=== PATIENT | male | born 1970 | race Caucasian/White ===

== ENCOUNTER 2016-10-07 17:44 | Inpatient (IN) ==
--- NOTE | 2016-10-07 18:10 | EKG Report ---
Stationary ECG Study [facility] ER Test Date: 10/07/2016 6:00:16 PM Pat Name: NARCISA MILLS Department: Room: Gender: M Clinical Investigator: Katerine : 1970 Requested by: Roberto Rodríguez Order Number: [id number] Reading MD: LINDSAY VELA Intervals [place] Rate: 77 P: 53 [place]: 150 QRS: 48 QRSD: 96 T: 72 QT: 368 QTc: 400 Interpretive Statements SINUS RHYTHM WITH MARKED SINUS ARRHYTHMIA INCOMPLETE RIGHT BUNDLE BRANCH BLOCK MINIMAL ST DEPRESSION Electronically Signed On 10-10-16 08:34:57 FOOD CLERK by LINDSAY VELA [email or web address]
[2016-10-07] MEDS ORDERED: PANTOPRAZOLE 40 MG VIAL IV STA (20:08)
[2016-10-07] MEDS ORDERED: ALUM/MAG/SIMETH/LIDO VISC 1:1 30 ML BOTTLE PO STA (20:08)
[2016-10-07] MEDS ORDERED: ONDANSETRON 4 MG/2 ML VIAL IV STA (20:08)
[2016-10-07] MEDS ORDERED: NITROGLYCERIN 2% OINT 1 INCH/GM PACK TOP STA (20:08)
[2016-10-07] MEDS ORDERED: ASPIRIN 325 MG TABLET PO STA (20:08)
[2016-10-07] MEDS ORDERED: MORPHINE 2 MG/1 ML SYRINGE IV STA (20:08)
--- NOTE | 2016-10-07 20:09 | Emergency Department Note ---
Rosales Almanzar Gwan, am scribing for, and in the presence of, Roberto Escobar MD 20 :02. Luz Almanzar Charles R, MD, personally performed the services described in this documentation, ascribed by Kelly Caba in my presence, and it is both accurate and complete . Arrival - Arrival Chief Complaint: Chest Pain Stated Complaint: HURTING IN CHEST/BACK ED Nursing Triage Note: C/O chest pain radiating to back, diaphoresis, SOB X 2 days. Pt is followed by Dr. Thomas. Mode of Arrival: Ambulatory Limitations: No Limitations Source: Patient, Old Records Reviewed, RN Notes Reviewed - History of Present Illness HPI Narrative: Pt is a 46 y/o male, with a hx of CVA/asthma/COPD, who presents to the ED with a c/o chest pain with an onset 2 days ago. Patient also noted that his chest pain radiates to his back and that he has also had diaphoresis and SOB. He continued to say that his pain won't go away. Patient confirmed that he is scheduled to have a stress test done on 10/10/2016 and that he smoke cigarettes daily. He denies any other pain. Pt is followed by Dr. Thomas. Pt has a PMHx of HTN, anxiety disorder, depression, schizophrenia, seizures, CVA (2013), migraine, dyslipidemia and bronchitis. No other problems/complaints reported in ED. Onset (ago): day(s) Consistency: constant Allergies/Adverse Reactions: Allergies Allergy/AdvReac Type Severity Reaction Status Date / Time Penicillins Allergy Severe RASH Verified 10/07/16 17:52 trazodone Allergy Severe RASH Verified 10/07/16 17:52 Sulfa (Sulfonamide Allergy Unknown RASH Verified 10/07/16 17:52 Antibiotics) Home Medications: Home Medications Medication Instructions Recorded Confirmed Type Esomeprazole Magnesium [Nexium] 40 mg PO BID 12/09/14 10/07/16 History Albuterol Inhaler [Proventil 2 puff INH Q6H PRN 07/20/16 10/07/16 History Inhaler] HYDROcodone/ACETAMIN 10-325 [Saline 1 tablet PO BID 10/07/16 10/07/16 History 10-325] Review of System - Review of System 12 point system: reviewed and no additional remarkable complaints except as stated - Review of System Constitutional: Present: as per HPI, diaphoresis Respiratory: Present: as per HPI, other (shortness of breathe) Cardiovascular: Present: as per HPI, chest pain Musculoskeletal: Present: as per HPI, back pain (chest pain radiates to his back ) Medical,Surgical,& Family Hx - Medical History Cardio: History of: Hypertension Psychological: History of: Anxiety Disorders, Depression, Schizophrenia Neurology: History of: Cerebrovascular Accident (2014), Migraine, Seizures HEENT: History of: Ear Problem ([place]), Eye Problem (Poor vision) Endocrine: History of: Dyslipidemia Respiratory: History of: Asthma, Bronchitis, COPD Gastrointestinal: History of: GERD, Pancreatitis Musculoskeletal: History of: Back/Neck Problems, Degenerative Disk Disease, Osteoporosis, Musculoskeletal Problems (Arthritis) - Surgical History Abdominal Surgeries: Surgical HX of: Abdominal Surgery, Colonoscopy, EGD, Hernia Repair Reproductive Surgeries: Patient denies;: Genitourinary Surgery Orthopedic Surgeries: Surgical HX of;: Orthopedic Surgery (bilateral shoulder surgery and hands) - Family History Family History: Reports;: Family Cancer (Brother, Mother), Family Diabetes ( Sister), Family Heart Disease (Father), Family Hypertension (Father, mother), Family Psychiatric Problems (Son), Family Stroke (Aunt) Denies;: Family Anesthesia Reaction - Social History Smoking Status: Current every day smoker Frequency of Alcohol Use: None Type of Drug Use: None Exam Vital Signs: Vital Signs Temperature 98.2 F 10/07/16 17:53 Pulse Rate 90 10/07/16 17:53 Respiratory Rate 18 10/07/16 17:53 Blood Pressure 138/87 10/07/16 17:53 O2 Sat by Pulse Oximetry 98 10/07/16 17:53 - General General appearance: alert, in no apparent distress, other (ill appearing; strong smell of smoke/kerosene) - Head Head exam: Present: atraumatic, normocephalic - Eye Eye exam: Present: normal appearance, PERRL, EOMI - ENT ENT exam: Present: normal oropharynx, mucous membranes moist, TM's normal bilaterally, normal external ear exam - Neck Neck exam: Present: full ROM, trachea midline. Absent: tenderness, meningismus , lymphadenopathy, thyromegaly - Chest Chest inspection: Present: symmetric chest wall rise. Absent: tenderness - Respiratory Respiratory exam: Present: rhonchi (bilateral) - Cardiovascular Cardiovascular exam: Present: regular rate, normal rhythm, normal heart sounds. Absent: murmur, rubs, gallop - Back Exam Back exam: Present: full ROM. Absent: tenderness - Neurological Exam Neurological exam: Present: alert, oriented X3, CN II-XII intact. Absent: motor sensory deficit - Psychiatric Psychiatric exam: Present: normal affect, normal mood - Skin Skin exam: Present: warm, dry, intact, normal color Course - Consultations Consultation #1: Dr. Mae will admit for Dr. Metzger Time: 20:48 Results - Labs CBC & BMP: 10/07/16 20:08 10/07/16 19:01 Lab Results: I have reviewed the patients labs Labs: Laboratory Tests 10/07/16 10/07/16 19:01 20:08 WBC 9.2 RBC 4.66 Hgb 14.9 Hct 44.0 Plt Count 305 INR 0.9 PT Patient/Control Mix 9.7 Disposition Clinical Impression: Chest pain, Peptic ulcer disease, Tobacco use Case discussed with: patient, patient's family Disposition: Still a Patient Condition: Stable Time of Disposition: 20:49
[2016-10-07 20:14] LABS: Basophils # 0.1 10*3/uL (0.0-0.2); Basophils % 0.7 % (0.0-0.8); Eosinophils # 0.1 10*3/uL (0.0-0.87); Eosinophils % 1.5 % (0.00-10.9); Hemoglobin 14.9 GM/DL (14.0-18.0); Immature Granulocytes % 0.3 %; Immature Granulocytes Absolute 0.03 #; Lymphocytes # 3.6 10*3/uL (1.4-4.0); Lymphocytes % 39.5 % (21.2-54.2); Mean Corpuscular HGB Conc 33.9 GM/DL (32-36); Mean Corpuscular Hemoglobin 32 PG (27-34); Mean Corpuscular Volume 94.4 FL (87-102); Monocytes # 0.5 10*3/uL (0.11-0.8); Monocytes % 5.7 % (1.7-12.7); Neutrophils # 4.8 10*3/uL (1.4-7.4); Neutrophils % 52.3 % (38.7-73.9); Platelet Count 305 T/CUMM (130-400); Red Blood Count 4.66 MC/CUMM (3.8-5.5); Red Cell Distribution Width 13.2 % (9.3-17.3); White Blood Count 9.2 T/CUMM (4-12)
[2016-10-07 20:20] LABS: INR 0.9; PT Patient Result 9.7 SECS
[2016-10-07 20:26] LABS: Alanine Aminotransferase 17 U/L (16-61); Albumin 3.7 G/DL (3.4-5.0); Alkaline Phosphatase 86 U/L (45-117); Aspartate Amino Transferase 9 U/L (0-37); Bilirubin,Total < 0.39 MG/DL (0.2-1.0); Blood Urea Nitrogen 9 MG/DL (7-18); Calcium 8.8 MG/DL (8.5-10.1); Glucose 106 MG/DL (74-106); Magnesium 2.1 MG/DL (1.8-2.4); Osmolality,Calculated 288.6 MOS/KG (273-304); Potassium 3.9 MMOL/L (3.5-5.1); Sodium 146 MMOL/L (136-145); Total Protein 6.2 G/DL (6.4-8.3)
[2016-10-07 20:38] LABS: Apearance,Urine CLEAR (Clear); Bilirubin,Urine Negative (Negative); Blood, Urine Small mg/dL (Negative); Glucose,Urine (UA) Negative (Negative); Ketones,Urine Negative (Negative); Mucus,Urine Occasional /LPF (Occasional); Nitrite,Urine Negative (Negative); Protein,Urine Negative; RBC,Urine 1 /HPF (0-4); Urine Color Yellow (Yellow); Urine Specific Gravity 1.018 (1.001-1.035); Urine Urobilinogen < 2.0 EU/DL (0.2-1.0); WBC,Urine <1 /HPF (0-6)
[2016-10-07] MEDS ORDERED: PANTOPRAZOLE 40 MG VIAL IV ONE (20:38)
[2016-10-07] MEDS ORDERED: NITROGLYCERIN 2% OINT 1 INCH/GM PACK TOP ONE (20:38)
[2016-10-07] MEDS ORDERED: ASPIRIN 325 MG TABLET ONE (20:39)
[2016-10-07] MEDS ORDERED: ONDANSETRON 4 MG/2 ML VIAL ONE (20:39)
[2016-10-07] MEDS ORDERED: ALUM/MAG/SIMETH/LIDO VISC 1:1 30 ML BOTTLE PO ONE (20:39)
[2016-10-07] MEDS ORDERED: MORPHINE 2 MG/1 ML SYRINGE ONE (20:39)
[2016-10-07 20:42] LABS: Barbiturates Screen,Urine Negative (Negative); Benzodiazepines Screen,Urine Negative (Negative); Cannabinoid Screen,Urine Negative (Negative); Opiate Screen,Urine Positive (Negative); Phencyclidine Screen,Urine Negative (Negative)
[2016-10-07] MEDS ORDERED: ENOXAPARIN 100 MG/ML SYRINGE SUBCUT STA (20:52)
[2016-10-07] MEDS ORDERED: ENOXAPARIN 80 MG/0.8 ML SYRINGE SUBCUT ONE (21:01)
--- NOTE | 2016-10-07 21:22 | XRay Report ---
History: Chest pain Date: 10/07/2016 Study: Chest x-ray PA and lateral Comparison exam: Chest x-ray December 30, 2016 The cardiac silhouette is not enlarged. There is no mediastinal mass. The pulmonary vasculature is not engorged. There is no pleural effusion. There is a small amount of strandy atelectasis/infiltrate in the medial right lung base. Lungs are otherwise clear. There are some scattered emphysematous changes, more so in the lung apices. The osseous structures are unchanged. Impression: Nonspecific mild atelectasis/infiltrate medial right lung base. Emphysematous changes PROCEDURE INTERPRETED AT [facility] DEPARTMENT OF RADIOLOGY Final Report Signed by: Dr. Bree Henderson
[2016-10-07] MEDS ORDERED: ALBUTEROL 2.5 MG/3 ML NEB RESP TX PRN (22:03)
[2016-10-07] MEDS ORDERED: MORPHINE 2 MG/1 ML SYRINGE IV PRN (22:03)
[2016-10-07] MEDS ORDERED: ALBUTEROL/IPRATROPIUM 3 ML NEB RESP TX PRN (22:03)
[2016-10-07] MEDS ORDERED: DEXTROSE 50% 25 GM/50 ML VIAL IV PRN (22:03)
[2016-10-07] MEDS ORDERED: MAGNESIUM SULF RIDER 4 GM in PREMIX 1 EACH IV PRN (22:03)
[2016-10-07] MEDS ORDERED: POTASSIUM CHLORIDE 20 MEQ TABLET PO PRN (22:03)
[2016-10-07] MEDS ORDERED: MAGNESIUM SULF RIDER 2 GM in PREMIX 1 EACH IV PRN (22:03)
[2016-10-07] MEDS ORDERED: GLUCAGON 1 MG VIAL IM PRN (22:03)
[2016-10-07] MEDS ORDERED: ONDANSETRON 4 MG/2 ML VIAL IV PRN (22:03)
[2016-10-07] MEDS: INSULIN REGULAR 100 UNIT/ML SUBCUT SCH (23:17)
[2016-10-07] MEDS: SODIUM CHLORIDE 0.9% 1,000 ML IV SCH (23:18)
[2016-10-07] MEDS ORDERED: PANTOPRAZOLE 40 MG TABLET PO ONE (23:24)
[2016-10-07] MEDS: PANTOPRAZOLE 40 MG TABLET PO SCH (23:36)
[2016-10-08] MEDS ORDERED: NITROGLYCERIN 2% OINT 1 INCH/GM PACK TOP ONE ×2 (06:47→13:23)
[2016-10-08] MEDS: NITROGLYCERIN 2% OINT 1 INCH/GM PACK TOP SCH ×4 (07:00→21:12)
--- NOTE | 2016-10-08 07:24 | XRay Report ---
XR chest 1V portable Indication: Shortness of breath. Chest one view: Since yesterday, diffuse periosteal thickening is again shown with no focal infiltrates seen. Heart size and mediastinal contours remain normal. Impression: Continued airways disease. PROCEDURE INTERPRETED AT [facility] DEPARTMENT OF RADIOLOGY Final Report Signed by: Lion Fields M.D.
[2016-10-08] MEDS: INSULIN REGULAR 100 UNIT/ML SUBCUT SCH ×4 (07:48→21:12)
[2016-10-08 08:08] LABS: Basophils # 0.1 10*3/uL (0.0-0.2); Basophils % 0.8 % (0.0-0.8); Eosinophils # 0.1 10*3/uL (0.0-0.87); Eosinophils % 1.2 % (0.00-10.9); Hematocrit 43.5 VOL% (42.0-52.0); Hemoglobin 14.3 GM/DL (14.0-18.0); Immature Granulocytes % 0.3 %; Immature Granulocytes Absolute 0.02 #; Lymphocytes # 2.1 10*3/uL (1.4-4.0); Lymphocytes % 28.4 % (21.2-54.2); Mean Corpuscular HGB Conc 32.9 GM/DL (32-36); Mean Corpuscular Hemoglobin 31 PG (27-34); Mean Corpuscular Volume 95.6 FL (87-102); Monocytes # 0.4 10*3/uL (0.11-0.8); Monocytes % 5.5 % (1.7-12.7); Neutrophils # 4.7 10*3/uL (1.4-7.4); Neutrophils % 63.8 % (38.7-73.9); Platelet Count 293 T/CUMM (130-400); Red Blood Count 4.55 MC/CUMM (3.8-5.5); Red Cell Distribution Width 13.2 % (9.3-17.3); White Blood Count 7.4 T/CUMM (4-12)
[2016-10-08] MEDS ORDERED: ENOXAPARIN 80 MG/0.8 ML SYRINGE SUBCUT ONE (08:55)
[2016-10-08] MEDS ORDERED: ASPIRIN 325 MG TABLET ONE (08:55)
[2016-10-08] MEDS ORDERED: PANTOPRAZOLE 40 MG TABLET PO SCH (09:00)
[2016-10-08] MEDS: ASPIRIN EC 325 MG TABLET PO SCH (09:00)
[2016-10-08] MEDS ORDERED: ASPIRIN EC 325 MG TABLET PO ONE (09:00)
[2016-10-08] MEDS: ENOXAPARIN 80 MG/0.8 ML SYRINGE SUBCUT SCH ×2 (09:01→21:13)
[2016-10-08] MEDS ORDERED: PANTOPRAZOLE 40 MG TABLET PO ONE (09:54)
[2016-10-08] MEDS: PANTOPRAZOLE 40 MG TABLET PO SCH ×2 (09:55→21:13)
--- NOTE | 2016-10-08 14:34 | Cardiology History & Physical ---
Assessment and Plan - Time spent with patient Time spent with patient: Greater than 30 minutes (1) Hypertension Status: Chronic Assessment and plan: SEE PLAN OF CARE LISTED BELOW Current Visit: Yes (2) Dyslipidemia Status: Chronic Assessment and plan: SEE PLAN OF CARE LISTED BELOW Current Visit: Yes (3) CVA (cerebral vascular accident) Status: Chronic Assessment and plan: SEE PLAN OF CARE LISTED BELOW Current Visit: Yes (4) Seizure disorder Status: Chronic Assessment and plan: SEE PLAN OF CARE LISTED BELOW Current Visit: Yes (5) Back pain Status: Chronic Assessment and plan: SEE PLAN OF CARE LISTED BELOW Current Visit: Yes (6) Chronic pain Status: Chronic Assessment and plan: SEE PLAN OF CARE LISTED BELOW Current Visit: Yes (7) Body aches Status: Acute Assessment and plan: SEE PLAN OF CARE LISTED BELOW Current Visit: Yes (8) Abnormal chest xray Status: Acute Assessment and plan: SEE PLAN OF CARE LISTED BELOW Current Visit: Yes (9) Chest pain Status: Acute Assessment and plan: SEE PLAN OF CARE LISTED BELOW Current Visit: No (10) Dysphagia Status: Acute Assessment and plan: SEE PLAN OF CARE LISTED BELOW Current Visit: No (11) Tobacco use Status: Chronic Assessment and plan: SEE PLAN OF CARE LISTED BELOW Current Visit: Yes History of Present Illness Chief complaint: chest pain, back pain History of present illness: Patient is being seen in the emergency department at [facility]. Mr. Lynn is a 46 year old male routinely followed by Dr. Jen Thomas. Risk factors include: hypertension, dyslipidemia, tobaccoism, CVA, sedentary lifestyle. Former history of cocaine abuse and alcohol abuse but he has quit for many years. He also has a history of peptic ulcer disease, dysphagia, gastritis of a seizure disorder COPD and anxiety. He was last seen in cardiology clinic 10/02/2016 with complaints of atypical chest pain. He was scheduled for stress testing this at [facility] [place] [facility]. He has undergone cardiac catheterization in [address] Mae which revealed no obstructive coronary disease. October 2015 he underwent stress testing at [facility] which revealed no evidence of reversible ischemia. Most recent echocardiogram 11/21/2015 revealed ejection fraction of 60-65% without significant valvular abnormality. Patient reported to the emergency department last evening after experiencing total body pain for approximately 2 days. He reported he was having left chest pain and left shoulder pain worse in certain positions. Dr. Escobar contacted the on-call mental health orderly last night who accepted Mr. Lynn to our service. Patient describes chest pain as soreness, worse in certain positions and reproducible to palpation. Laying on the bed for so long test causes back pain and chest wall pain hurt worse. It is not associated with shortness of breath. He has chronic nausea as he has chronic abdominal pain in a long-standing history of GI issues. Occasionally, his belly aches to touch and aches at random. He tells me he is having some difficulty swallowing foods. He had a recent esophageal dilation by Dr. Reynolds. He feels like he needs this reviewed again. He has had a Calvin procedure that was later "undone for being too tight ". He denies recent vomiting of blood or passing blood in his stool. In general, he simply just does not feel well. He was concerned he could be having heart problems because not only is he hurting all over his body is hurting in the left chest. He continues to smoke cigarettes, currently smoking up to one and a half packs of cigarettes per day. Chest x-ray reveals infiltrate in the medial right lung and emphysematous changes. His cardiac biomarkers are negative and his EKG reveals no acute ischemia. ASSESSMENT/PLAN: 1. CHEST PAIN - suspect this is musculoskeletal in nature. Chest pain has been chronic for 2 days with normal troponin. He does have a Firm area on the left breast located at 10 o'clock. Will order mammogram. We'll also treat with Neurontin, tramadol and acetaminophen. He has no abnormal CT of chest with chest pain. We will order CT of his chest today PE protocol 2. TOTAL BODY ACHING - swab for the flu 3. DYSPHAGIA - consult Dr. Reynolds. Patient has a long-standing history of peptic ulcer disease and multiple GI issues. 4. ABNORMAL CHEST XRAY - suspicious for infiltrate related to possible pneumonia, worsening emphysema. CT chest PE protocol ordered 5. CHRONIC PAIN - resume home meds 6. HYPERTENSION - usually well controlled. Will adjust patient's accordingly during hospital stay 7. DYSLIPIDEMIA - at this time, we'll hold cholesterol-lowering agents which may be contributing to his body aches. Fasting lipid profile in the morning. Can consider steady a as needed. 8. SEIZURE DISORDER - no active seizure in several years. We will continue his home medications for seizure prevention. 9. EARLY SATIETY -Will consult gastroenterology 10. TOBACCOISM -reiterated the importance of tobacco cessation for greater than 5 minutes 11. SLEEP APNEA - noncompliant with sleep device due to ill fitting mask. Home Medications Medication Instructions Recorded Confirmed Type Esomeprazole Magnesium [Nexium] 40 mg PO BID 12/09/14 10/07/16 History Albuterol Inhaler [Proventil 2 puff INH Q6H PRN 07/20/16 10/07/16 History Inhaler] HYDROcodone/ACETAMIN 10-325 [[place] 1 tablet PO BID 10/07/16 10/07/16 History 10-325] Allergies Allergy/AdvReac Type Severity Reaction Status Date / Time Penicillins Allergy Severe RASH Verified 10/07/16 17:52 trazodone Allergy Severe RASH Verified 10/07/16 17:52 Sulfa (Sulfonamide Allergy Unknown RASH Verified 10/07/16 17:52 Antibiotics) Review of systems: REVIEW OF SYSTEMS: - Constitutional Constitutional: Present: Chronic fatigue. Anorexia and early satiety. Absent : syncope, night sweats - EENT Eyes: Acknowledges decreased vision both eyes after having stroke 2 years ago. Absent: Diplopia Ears: Present: decreased hearing. Denies ear pain, ear discharge - Cardiovascular Cardiovascular: Present: chest pain with exertion, chest pain at rest. Chest pain in certain positions. Chest pain to touch. Denies edema. Occasional palpitations, chest pain with deep breath, claudication. - Respiratory Respiratory: Present: [place], cough. Absent: wheezing, hemoptysis, change in phlegm color - Gastrointestinal Gastrointestinal: Present: constipation and diarrhea. Chronic abdominal pain throughout, particularly left upper quadrant of the abdomen. Frequent nausea Absent: hematemesis, hematochezia, melena, change in bowel habits - Genitourinary Genitourinary: Absent: difficulty urinating, dysuria, urinary hesitancy, flank pain - Musculoskeletal Musculoskeletal: Present: back pain, neck pain. Frequent muscle cramps and fatigue Absent: joint swelling, muscle weakness - Neurological Neurological: Present: normal gait without frequent falls. Frequent dizziness. Absent: hemiparesis - Psychiatric Psychiatric: Present: anxiety, depression, difficulty concentrating - Endocrine Endocrine: Present: fatigue. Absent: cold intolerance, heat intolerance, polyuria, polyphagia, polydipsia - Hematologic/Lymphatic Hematologic/Lymphatic: Present: easy bruising. Absent: easy bleeding -Integumentary Integumentary: Absent: lesions, rashes, skin breakdown Medical,Surgical,& Family Hx - Medical History Cardio: History of: Hypertension No history of: CHF, CAD, RI, Valvular Heart Disease Psychological: History of: Anxiety Disorders, Depression, Schizophrenia Neurology: History of: Cerebrovascular Accident (2014), Migraine, Seizures HEENT: History of: Ear Problem ([place]), Eye Problem (Poor vision) Endocrine: History of: Dyslipidemia Respiratory: History of: Asthma, Bronchitis, COPD Gastrointestinal: History of: GERD, Pancreatitis Musculoskeletal: History of: Back/Neck Problems, Degenerative Disk Disease, Osteoporosis, Musculoskeletal Problems (Arthritis) - Surgical History Abdominal Surgeries: Surgical HX of: Abdominal Surgery, Colonoscopy, EGD, Hernia Repair Reproductive Surgeries: Patient denies;: Genitourinary Surgery Orthopedic Surgeries: Surgical HX of;: Orthopedic Surgery (bilateral shoulder surgery and hands) - Family History Family History: Reports;: Family Cancer (Brother, Mother), Family Diabetes ( Sister), Family Heart Disease (Father), Family Hypertension (Father, mother), Family Psychiatric Problems (Son), Family Stroke (Aunt) Denies;: Family Anesthesia Reaction - Social History Smoking Status: Current every day smoker Have you smoked in the last 12 months: Yes Time spent discussing smoking cessation with patient: 3 to 10 minutes Frequency of Alcohol Use: None Type of Drug Use: None Marital Status: Lives With:: Spouse Functional capacity: independent ambulation Cardiology Physical Exam - Constitutional Vitals: Vital Signs Temp Pulse Resp BP Pulse Ox 98.2 F 69 16 109/83 96 10/07/16 17:53 10/08/16 08:45 10/08/16 08:45 10/08/16 08:45 10/08/16 08:45 Intake and Output 10/07/16 10/08/16 10/08/16 23:59 07:59 15:59 Output Total 125 / 125 Balance -125 / -125 Output: Urine 125 / 125 Other: Voiding Method Urinal Weight 74.843 kg Exam: General: Thin male. Appears well with no apparent distress. Pleasant and cooperative. Appears comfortable. HEENT: PERRL, normocephalic, atraumatic. Poor dentition noted. Mucous membranes moist. No jaundice noted. Conjunctiva moist and clear, sclerae anicteric Neck: No JVD/HJR, no thyromegaly or lymphadenopathy noted. No carotid bruit appreciated Cardiac: Regular rate and rhythm. No murmur rub or gallop. Lungs: Rhonchi noted throughout. And expiratory wheezes noted right anteriorly. Not Requiring oxygen Abdomen: Soft, bowel sounds normoactive. Tender in mid epigastric and left upper quadrant to moderate palpation. No abdominal bruit or thrill noted. No masses noted. Musculoskeletal: No fluid collection. Decreased range of motion is noted. Extremities: No clubbing, cyanosis noted. No edema noted. Upper extremity pulses 2+. Lower extremity pulses 1+. Capillary refill less than 3 seconds. Skin: No unusual lesions or rashes. No skin breakdown appreciated. Neuro: Awake, alert and oriented 3. Moves all extremities well without hemiparesis or paralysis. No essential tremor is appreciated. Result/EKG - Labs CBC & BMP: 10/08/16 06:49 10/07/16 19:01 Lab Results: I have reviewed the past 24 hour labs Labs: Laboratory Results - last 24 hr 10/07/16 10/07/16 10/07/16 19:01 19:01 19:01 WBC RBC Hgb Hct MCV MCH MCHC RDW Plt Count MPV Neut % (Auto) Lymph % (Auto) [place] % (Auto) Eos % (Auto) Baso % (Auto) Neut # (Auto) Lymph # (Auto) [place] # (Auto) Eos # (Auto) Baso # (Auto) Immature Gran % Nucleated RBC % Immature Gran # Nucleated RBCs # INR 0.9 PT Patient/Control Mix 9.7 Sodium 146 H Potassium 3.9 Chloride 111 H Carbon Dioxide 26 Anion Gap 12.9 BUN 9 Creatinine 0.90 GFR Calculation 99 BUN/Creatinine Ratio 10.00 Glucose 106 POC Glucose Calculated Osmolality 288.6 Calcium 8.8 Magnesium 2.1 Total Bilirubin < 0.39 AST 9 ALT 17 Alkaline Phosphatase 86 Troponin I B-Natriuretic Peptide Total Protein 6.2 L Albumin 3.7 Globulin 2.5 Albumin/Globulin Ratio 1.4 Lipase 224.0 Urine Color Yellow Urine Appearance Clear Urine pH 5.0 Ur Specific [place] 1.018 Urine Protein Negative Urine Glucose (UA) Negative Urine Ketones Negative Urine Blood Small Urine Nitrate Negative Urine Bilirubin Negative Urine Urobilinogen < 2.0 H Urine Leukocytes Negative Urine RBC 1 Urine WBC <1 Urine Mucus Occasional Ur Culture Indicated? Not indicated Urine Opiates Screen Ur Barbiturates Screen Ur Phencyclidine Scrn U Amphetamine/Methamph U Benzodiazepines Scrn U Cocaine Metab Screen U Cannabinoids Screen 10/07/16 10/07/16 10/07/16 19:01 19:01 19:01 WBC RBC Hgb Hct MCV MCH MCHC RDW Plt Count MPV Neut % (Auto) Lymph % (Auto) [place] % (Auto) Eos % (Auto) Baso % (Auto) Neut # (Auto) Lymph # (Auto) [place] # (Auto) Eos # (Auto) Baso # (Auto) Immature Gran % Nucleated RBC % Immature Gran # Nucleated RBCs # INR PT Patient/Control Mix Sodium Potassium Chloride Carbon Dioxide Anion Gap BUN Creatinine GFR Calculation BUN/Creatinine Ratio Glucose POC Glucose Calculated Osmolality Calcium Magnesium Total Bilirubin AST ALT Alkaline Phosphatase Troponin I < 0.015 B-Natriuretic Peptide 5 Total Protein Albumin Globulin Albumin/Globulin Ratio Lipase Urine Color Urine Appearance Urine pH Ur Specific [place] Urine Protein Urine Glucose (UA) Urine Ketones Urine Blood Urine Nitrate Urine Bilirubin Urine Urobilinogen Urine Leukocytes Urine RBC Urine WBC Urine Mucus Ur Culture Indicated? Urine Opiates Screen Positive H Ur Barbiturates Screen Negative Ur Phencyclidine Scrn Negative U Amphetamine/Methamph Negative U Benzodiazepines Scrn Negative U Cocaine Metab Screen Negative U Cannabinoids Screen Negative 10/07/16 10/07/16 10/08/16 20:08 22:47 01:28 WBC 9.2 RBC 4.66 Hgb 14.9 Hct 44.0 MCV 94.4 MCH 32 MCHC 33.9 RDW 13.2 Plt Count 305 MPV 10.0 Neut % (Auto) 52.3 Lymph % (Auto) 39.5 [place] % (Auto) 5.7 Eos % (Auto) 1.5 Baso % (Auto) 0.7 Neut # (Auto) 4.8 Lymph # (Auto) 3.6 [place] # (Auto) 0.5 Eos # (Auto) 0.1 Baso # (Auto) 0.1 Immature Gran % 0.3 Nucleated RBC % 0.0 Immature Gran # 0.03 Nucleated RBCs # 0.00 INR PT Patient/Control Mix Sodium Potassium Chloride Carbon Dioxide Anion Gap BUN Creatinine GFR Calculation BUN/Creatinine Ratio Glucose POC Glucose 70 L Calculated Osmolality Calcium Magnesium Total Bilirubin AST ALT Alkaline Phosphatase Troponin I < 0.015 B-Natriuretic Peptide Total Protein Albumin Globulin Albumin/Globulin Ratio Lipase Urine Color Urine Appearance Urine pH Ur Specific [place] Urine Protein Urine Glucose (UA) Urine Ketones Urine Blood Urine Nitrate Urine Bilirubin Urine Urobilinogen Urine Leukocytes Urine RBC Urine WBC Urine Mucus Ur Culture Indicated? Urine Opiates Screen Ur Barbiturates Screen Ur Phencyclidine Scrn U Amphetamine/Methamph U Benzodiazepines Scrn U Cocaine Metab Screen U Cannabinoids Screen 10/08/16 10/08/16 10/08/16 06:49 06:49 07:48 WBC 7.4 RBC 4.55 Hgb 14.3 Hct 43.5 MCV 95.6 MCH 31 MCHC 32.9 RDW 13.2 Plt Count 293 MPV 10.0 Neut % (Auto) 63.8 Lymph % (Auto) 28.4 [place] % (Auto) 5.5 Eos % (Auto) 1.2 Baso % (Auto) 0.8 Neut # (Auto) 4.7 Lymph # (Auto) 2.1 [place] # (Auto) 0.4 Eos # (Auto) 0.1 Baso # (Auto) 0.1 Immature Gran % 0.3 Nucleated RBC % 0.0 Immature Gran # 0.02 Nucleated RBCs # 0.00 INR PT Patient/Control Mix Sodium Potassium Chloride Carbon Dioxide Anion Gap BUN Creatinine GFR Calculation BUN/Creatinine Ratio Glucose POC Glucose 89 Calculated Osmolality Calcium Magnesium Total Bilirubin AST ALT Alkaline Phosphatase Troponin I B-Natriuretic Peptide 17 Total Protein Albumin Globulin Albumin/Globulin Ratio Lipase Urine Color Urine Appearance Urine pH Ur Specific [place] Urine Protein Urine Glucose (UA) Urine Ketones Urine Blood Urine Nitrate Urine Bilirubin Urine Urobilinogen Urine Leukocytes Urine RBC Urine WBC Urine Mucus Ur Culture Indicated? Urine Opiates Screen Ur Barbiturates Screen Ur Phencyclidine Scrn U Amphetamine/Methamph U Benzodiazepines Scrn U Cocaine Metab Screen U Cannabinoids Screen - Diagnostic Findings Procedure: Chest x-ray: report reviewed by me - EKG EKG results: interpreted by me, sinus rhythm
[2016-10-08] MEDS ORDERED: MAGNESIUM SULF RIDER 2 GM in PREMIX 1 EACH IV PRN (14:47)
[2016-10-08] MEDS ORDERED: MAGNESIUM SULF RIDER 4 GM in PREMIX 1 EACH IV PRN (14:47)
--- NOTE | 2016-10-08 15:11 | CT Report ---
Exam: CT chest PE study The total DLP is 237.7 mGy*cm. Date: 10/08/2016 2:44 PM Indication: Chest pain, abnormal chest x-ray, emphysema Comparison: Prior CT PE protocol September 27, 2015 Technical: Images were obtained from the thoracic inlet through the lung bases with 80 cc of Omnipaque 350 with axial and coronal imaging available for review. Findings: Mediastinum/vessels/lymph nodes: No filling defects are identified within the pulmonary vasculature to suggest pulmonary thromboembolism. The pulmonary arteries are not enlarged. Heart and great vessels appear unremarkable. There is no evidence of pericardial effusion. The aorta and great vessels appear widely patent. 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 Concurrently, the right-sided superior vena cava is diminutive in size with the opacified lumen measuring a minimum of 7 x 4 mm in cross-section in the axial plane. There is no adenopathy in the chest. Probably reactive, borderline but not technically enlarged right perihilar lymph nodes are noted. Lungs: Prominent emphysematous changes are noted within the upper lobes bilaterally. Otherwise, the lungs appear predominantly clear and central airways are patent. There is no pneumothorax or pleural effusion. There is no focal consolidation. No suspicious pulmonary nodules or masses are identified. Thyroid: Thyroid gland appears within normal limits. No acute abnormality is identified within the visualized upper abdomen. BONES: No acute or suspicious appearing osseous abnormalities are identified. Impression: 1. No evidence of pulmonary emboli. No other acute abnormality within the chest or upper abdomen to explain patient's symptoms. 2. Somewhat prominent emphysematous changes within both upper lobes which appear minimally progressed from prior. 3. Diminutive right-sided SVC and duplicated left SVC appears similar to prior. PROCEDURE INTERPRETED AT [facility] DEPARTMENT OF RADIOLOGY Final Report Signed by: Danyel Robertson
[2016-10-08] MEDS: ACETAMINOPHEN 325 MG TABLET PO SCH (21:13)
[2016-10-08] MEDS: traMADol 50 MG TABLET PO SCH (21:13)
[2016-10-08] MEDS: GABAPENTIN 100 MG CAPSULE PO SCH (21:14)
[2016-10-09] MEDS: SODIUM CHLORIDE 0.9% 1,000 ML IV SCH (01:58)
[2016-10-09] MEDS: NITROGLYCERIN 2% OINT 1 INCH/GM PACK TOP SCH ×2 (01:58→12:25)
--- NOTE | 2016-10-09 06:31 | History and Physical Update ---
Sedation H&P Update - History and Physical H&P was reviewed, the patient examined and there: are no changes in the patients condition since last H&P was completed. - Dictation Physical: refer to H&P completed by admitting physician - Physical Exam Mental Status: alert and oriented Heart: regular rate and rhythm Lung: clear to auscultation Abdomen: within normal limits Vitals: within normal limits - Sedation Plan for Sedation: minimal Patient Consent: Procedure disscussed with patient and patinet has consented., Risks and benefits were discussed with patient,including infection,, bleeding, injury to surrounding structures, seizure, temporary nerve, Patient understands and accepts potential risks/benefits and agrees to, proceed. ASA Class: II Airway Assessment: Class II: Soft palate, uvula, fauces visible
[2016-10-09] MEDS ORDERED: POTASSIUM CHLORIDE RIDER 10 MEQ in PREMIX 1 EACH IV PRN (07:00)
[2016-10-09] MEDS ORDERED: ASPIRIN CHEW 81 MG TABLET PO ONE (07:00)
[2016-10-09] MEDS ORDERED: MAGNESIUM SULF RIDER 2 GM in PREMIX 1 EACH IV PRN (07:00)
[2016-10-09] MEDS ORDERED: DIAZEPAM 5 MG TABLET PO ONE (07:00)
[2016-10-09] MEDS ORDERED: diphenhydrAMINE CAP 25 MG CAPSULE PO ONE (07:00)
[2016-10-09] MEDS: PANTOPRAZOLE 40 MG TABLET PO SCH ×2 (07:14→09:48)
[2016-10-09] MEDS ORDERED: LIDOCAINE 1% 20 ML VIAL ONE (07:43)
[2016-10-09] MEDS ORDERED: MEPERIDINE 25 MG/1 ML VIAL ONE (07:43)
[2016-10-09] MEDS ORDERED: MIDAZOLAM 2 MG/2 ML VIAL ONE (07:44)
[2016-10-09] MEDS ORDERED: SODIUM CHLORIDE 0.9% 1,000 ML IV SCH (08:53)
[2016-10-09] MEDS ORDERED: ENOXAPARIN 40 MG/0.4 ML SYRINGE SUBCUT SCH (09:00)
--- NOTE | 2016-10-09 09:10 | Cardiology Operative Report ---
Date of Procedure:: 10/09/16 Post-op diagnosis: same (Progressive chest pain,, thought to be unstable angina , requiring patient to go the emergency room, smoker) Procedure: Left heart cath Coronary angiography Left ventriculography Angiogram of the right femoral artery Angio-Seal of the right femoral artery-successful procedure: The patient was prepped and draped in usual manner. Entered the right femoral artery via the Seldinger technique. I used a sheath and then used a JL4 and engaged left coronary. Multiple views were taken. I then exchanged for a JR4. Multiple views of the right coronary were taken. I then exchanged for an angled pigtail. I crossed the valve. Left ventricular end-diastolic pressures measured. Left ventriculography was done. Left ventricle pullback was done. The catheters were then removed from the patient. Angiogram of the right femoral he was done. Angio-Seal was done. Patient was returned to the room in satisfactory condition. See medical laboratory technical officer report for the catheter sizes. Complications: none Hemodynamic data: LVEDP was 20 mmHg. Angiographic data: TAVAREZ left ventrigulography revealed normal global/regional LV systolic function. Overall ejection fraction is reviewed least 55-65%. The left main coronary was large and had minimal luminal irregularities. The left anterior descending artery was moderate in size. There is one major diagonal. there were minimal luminal irregularities. The left circumflex system was moderate to large. there was 1 major obtuse marginal and 1 posterior lateral branches. there are minimal luminal irregularities in the circumflex The right coronary artery was a large size, dominant vessel with the PDA. there are minimal luminal irregularities Right femoral artery injection revealed the puncture site of the right groin to be above the bifurcation, in a large vessel, and suitable for Angio-Seal. Findings: Impression: Minimal luminal irregularities-no significant obstructive disease Normal global/regional LV systolic function, LVEF greater than 55% [id number] elevation of LVEDP, 20 mmHg Angiogram of the right femoral artery Angio-Seal of right femoral artery-successful Plan/recommendations: The patient will have risk factors optimized. I have rediscussed with the patient about the need to stop smoking. He voices understanding and is considering it. The patient will be on antiplatelet medications to include aspirin indefinitely . He is better regarding treatment of his pain was treated for chest wall pain and continue proton pump inhibitor. Thus, we will continue these medications. He will be set up for an outpatient evaluation by his GI doctor, Dr. Victoriano Reynolds. The patient notes in the past he has had E scope and dilatation for esophageal stricture but he says it is not always help. Withfollow-up with Dr. Thomas will be scheduled. Addenda: I saw the patient post-cath. the groin puncture site and distal pulse are stable. vital signs are stable and the patient will be observed closely overnight. Anesthesia: local, minimal conscious sedation Surgeon / Physician: Melo Mae Agriculture Scientist: other (barney heck) Estimated blood loss: minimal Specimens: none sent Condition: stable Disposition: floor
[2016-10-09 09:23] LABS: Basophils # 0.1 10*3/uL (0.0-0.2); Basophils % 0.7 % (0.0-0.8); Eosinophils # 0.1 10*3/uL (0.0-0.87); Eosinophils % 1.2 % (0.00-10.9); Hematocrit 41.6 VOL% (42.0-52.0); Hemoglobin 13.7 GM/DL (14.0-18.0); Immature Granulocytes % 0.4 %; Immature Granulocytes Absolute 0.03 #; Lymphocytes # 1.7 10*3/uL (1.4-4.0); Lymphocytes % 24.3 % (21.2-54.2); Mean Corpuscular HGB Conc 32.9 GM/DL (32-36); Mean Corpuscular Hemoglobin 31 PG (27-34); Mean Corpuscular Volume 95.4 FL (87-102); Monocytes # 0.4 10*3/uL (0.11-0.8); Monocytes % 5.6 % (1.7-12.7); Neutrophils # 4.6 10*3/uL (1.4-7.4); Neutrophils % 67.8 % (38.7-73.9); Platelet Count 272 T/CUMM (130-400); Red Blood Count 4.36 MC/CUMM (3.8-5.5); White Blood Count 6.8 T/CUMM (4-12)
[2016-10-09] MEDS: INSULIN REGULAR 100 UNIT/ML SUBCUT SCH ×3 (09:47→17:36)
[2016-10-09 09:52] LABS: Calcium 8.3 MG/DL (8.5-10.1); Magnesium 2.3 MG/DL (1.8-2.4); Osmolality,Calculated 287.6 MOS/KG (273-304); Potassium 4.4 MMOL/L (3.5-5.1)
[2016-10-09] MEDS: ACETAMINOPHEN 325 MG TABLET PO SCH (10:03)
[2016-10-09] MEDS: traMADol 50 MG TABLET PO SCH (10:04)
[2016-10-09] MEDS: GABAPENTIN 100 MG CAPSULE PO SCH ×2 (10:05→15:36)
[2016-10-09] MEDS: ASPIRIN EC 325 MG TABLET PO SCH (10:22)
[2016-10-09] MEDS: ENOXAPARIN 80 MG/0.8 ML SYRINGE SUBCUT SCH (10:22)
--- NOTE | 2016-10-09 11:10 | Gastrointestinal Consult Note ---
Assessment and Plan (1) Chest pain Status: Acute Assessment and plan: 10/09-Several day history of chest pain, radiating to back and shoulders. Prior hx of esophageal stricture, dysphagia, GERD with hx of Calvin which was reversed in 2001. Negative heart cath today. Last EGD Jun with dilation. Plan and addendum to follow by Dr Reynolds. Current Visit: No History of Present Illness Chief complaint: Chest pain History of present illness: Mr. Lynn is a 46 year old male who presented to the hospital with onset of chest pain and SOB. Pt states that 3 days ago he had a sudden onset of chest pain that radiated to his back and shoulder with associated diaphoresis and SOB. He states the pain did not go away after onset and only wavered in intensity. Pt states that he has had pain like this before but never this intense. He has a prior history of HTN, anxiety, depression, schizophrenia, CVA (2013). He has a history of Calvin fundopilication done several years ago that he had reversed in 2001 due to ongoing dysphagia complaints. He states that the last several weeks he has had worsening dysphagia with solids and pills but not liquids. States that he does have some sensation of the food sticking in his throat and causes some chest discomfort. He reports he has lost about 5 pds recently due to unable to eat well. He denies any melena or hematochezia. He does have GERD symptoms and takes Nexium for this. He has had esophageal dilation done in the past with most recent being in February and Jun of this past year. He states it helped for a few weeks. He relates some of the chest pain to the same sensation as in past when he needed a dilation. He underwent cardiac catherization today with no acute findings noted. He is not on anticoagulants at present. Denies NSAID use. Home Medications Medication Instructions Recorded Confirmed Type Esomeprazole Magnesium [Nexium] 40 mg PO BID 12/09/14 10/07/16 History Albuterol Inhaler [Proventil 2 puff INH Q6H PRN 07/20/16 10/07/16 History Inhaler] HYDROcodone/ACETAMIN 10-325 [[place] 1 tablet PO BID 10/07/16 10/07/16 History 10-325] Allergies Allergy/AdvReac Type Severity Reaction Status Date / Time Penicillins Allergy Severe RASH Verified 10/07/16 17:52 trazodone Allergy Severe RASH Verified 10/07/16 17:52 Sulfa (Sulfonamide Allergy Unknown RASH Verified 10/07/16 17:52 Antibiotics) Medical,Surgical,& Family Hx - Medical History Cardio: History of: Hypertension No history of: CHF, CAD, AR, Valvular Heart Disease Psychological: History of: Anxiety Disorders, Depression, Schizophrenia Neurology: History of: Cerebrovascular Accident (2013), Migraine, Seizures HEENT: History of: Ear Problem ([place]), Eye Problem (Poor vision) Endocrine: History of: Dyslipidemia Respiratory: History of: Asthma, Bronchitis, COPD Gastrointestinal: History of: GERD, Pancreatitis Musculoskeletal: History of: Back/Neck Problems, Degenerative Disk Disease, Osteoporosis, Musculoskeletal Problems (Arthritis) - Surgical History Abdominal Surgeries: Surgical HX of: Abdominal Surgery, Colonoscopy, EGD, Hernia Repair Reproductive Surgeries: Patient denies;: Genitourinary Surgery Orthopedic Surgeries: Surgical HX of;: Orthopedic Surgery (bilateral shoulder surgery and hands) - Family History Family History: Reports;: Family Cancer (Brother, Mother), Family Diabetes ( Sister), Family Heart Disease (Father), Family Hypertension (Father, mother), Family Psychiatric Problems (Son), Family Stroke (Aunt) Denies;: Family Anesthesia Reaction - Social History Smoking Status: Current every day smoker Frequency of Alcohol Use: None Type of Drug Use: None 12 point system: reviewed and no additional remarkable complaints except as stated - Constitutional Constitutional: Present: as per HPI, weight loss - EENT Eyes: Present: as per HPI Ears: Present: as per HPI Nose, mouth and throat: Present: as per HPI, dysphagia - Cardiovascular Cardiovascular: Present: as per HPI, chest pain at rest - Respiratory Respiratory: Present: as per HPI - Gastrointestinal Gastrointestinal: Present: as per HPI, dysphagia, early satiety, heartburn - Genitourinary Genitourinary: Present: as per HPI - Musculoskeletal Musculoskeletal: Present: as per HPI - Neurological Neurological: Present: as per HPI - Psychiatric Psychiatric: Present: as per HPI - Endocrine Endocrine: Present: as per HPI - Hematologic/Lymphatic Hematologic/Lymphatic: Present: as per HPI Exam - Constitutional Vitals: Period Temp Pulse Resp BP Sys/Mitchell Pulse Ox Last 24 Hr 97.1 F-98.2 F 56-79 16-20 100-124/39-89 93-97 General appearance: normal weight, no acute distress - Head Head exam: Present: normal inspection, normocephalic - Eye Eye exam: Present: other (lids and conjunctiva unremarakble). Absent: scleral icterus - ENT ENT exam: Present: normal exam, normal oropharynx - Neck Neck exam: Present: normal inspection - Respiratory Respiratory exam: Present: clear to auscultation bilaterally. Absent: rales, rhonchi, wheezes - Cardiovascular Cardiovascular exam: Present: regular rate and rhythm. Absent: diastolic murmur , JVD, systolic murmur - GI/Abdominal GI/Abdominal exam: Present: normal bowel sounds, soft. Absent: ascites, distended, mass, organomegaly, tenderness - Extremities Exam Extremities exam: Present: normal inspection, full ROM - Back Exam Back exam: Present: normal inspection - Neurological Exam Neurological exam: Present: alert, oriented X3 - Psychiatric Psychiatric exam: Present: normal affect, normal mood - Skin Skin exam: Present: normal color, warm, dry Results - Labs CBC & BMP: 10/09/16 09:04 10/09/16 09:04 Lab Results: I have reviewed the past 24 hour labs Quality Measures - VTE Contraindication to Pharmacological VTE Prophylaxis: High Risk of Bleeding
[2016-10-09 14:49] VITALS: BP 102/62
--- NOTE | 2016-10-09 15:54 | Discharge Summary ---
Hospital Course - Hospital Course Hospital Course: Mr. Lynn is a 46 year old male routinely followed by Dr. Jen Thomas. Risk factors include: hypertension, dyslipidemia, tobaccoism, CVA, sedentary lifestyle. Former history of cocaine abuse and alcohol abuse but he has quit for many years. He also has a history of peptic ulcer disease, dysphagia, gastritis of a seizure disorder COPD and anxiety. He was last seen in cardiology clinic 10/02/2016 with complaints of atypical chest pain. He was scheduled for stress testing 10/10/2016 at [facility] [place] [facility]. He has undergone cardiac catheterization in [address] Mae which revealed no obstructive coronary disease. October 2015 he underwent stress testing at [facility] which revealed no evidence of reversible ischemia. Most recent echocardiogram 11/21/2015 revealed ejection fraction of 60-65% without significant valvular abnormality. Patient reported to the emergency department 10/08/2016 evening after experiencing total body pain for approximately 2 days. He reported he was having left chest pain and left shoulder pain worse in certain positions. Patient had numerous complaints and it was difficult to tease out exactly what the primary problem was. However, patient was concerned he was having a heart attack. He underwent elective cardiac catheterization performed by Dr. Mae 2016 with the following impression noted: No obstructive coronary artery disease. He tolerated the procedure well without complication was returned to our telemetry unit in stable condition. It is felt that his chest discomfort, in addition to being musculoskeletal in nature, may be from some of the numerous GI issues that he does have. He describes painful swallowing and difficulty swallowing. For this reason, he will be scheduled for an outpatient evaluation by Dr. Reynolds. Patient was treated with medications for his chest pain while he was here in the chest pain did improve overnight. Patient has been out ambulating post cath and when out smoking at one point. He tolerated the ambulation without problems from his right groin. Having felt he met maximal medical therapy, patient is being discharged home in stable condition. Patient will be given a follow-up appointment with Dr. Reynolds in the next one to 2 weeks. Patient is being given a follow-up appointment with Dr. Thomas in 4-6 weeks. Patient will be discharged home on the following new medications: Neurontin 100 mg orally 3 times a day for one week Tramadol 50 mg's orally twice a day 1 week Acetaminophen 325 mg orally twice a day 1 week - Time spent with patient Time with patient DS: Greater than 30 minutes Time spent discussing smoking cessation with patient: 3 to 10 minutes Diagnosis - Discharge Diagnosis (1) Hypertension Status: Chronic (2) Dyslipidemia Status: Chronic (3) CVA (cerebral vascular accident) Status: Chronic (4) Seizure disorder Status: Chronic (5) Back pain Status: Chronic (6) Chronic pain Status: Chronic (7) Body aches Status: Resolved (8) Abnormal chest xray Status: Chronic (9) Chest pain Status: Resolved (10) Dysphagia Status: Chronic (11) Tobacco use Status: Chronic Specialty Discharge - Follow Up or Referrals Follow up with: Wilmer Reynolds MD [Physician] - ([facility] , do not eat or drink anything after midnight the morning of procedure. ) Jen Thomas MD [Physician] - (4-6 weeks) Discharge Plan - Discharge Data Disposition: Disch To Home/Self Care Condition at Discharge: Stable Discharge Diet: advance to your usual diet Activity: other Hygiene: no restrictions (expectations) Weight Bearing at Discharge: other (post-cath expectations) Driving: other Contact your physician if you experience:: fever over 101, Difficulty voiding, Redness or swelling (post-cath expectations), Nausea/Vomiting, Shortness of breath, Bleeding, pain uncontrolled by pain medications - Discharge Medications New Acetaminophen Tab [Tylenol Tab] 325 mg PO BID #14 tablet traMADol TAB [Ultram] 50 mg PO BID #14 tablet Aspirin Chew Tab 81 mg PO DAILY #30 tablet Gabapentin Cap/Tab [Neurontin Cap/Tab] 100 mg PO TID #21 capsule Continue Esomeprazole Magnesium [Nexium] 40 mg PO BID Albuterol Inhaler [Proventil Inhaler] 2 puff INH Q6H PRN PRN Reason: Shortness Of Breath/Wheezing HYDROcodone/ACETAMIN 10-325 [[place] 10-325] 1 tablet PO BID - Follow Up or Referral Follow Up: Wilmer Reynolds MD [Physician] - (Arrive at [facility] admission desk at 0830 Am on Sep for EGD , do not eat or drink anything after midnight the morning of procedure. ) - Forms/Instructions Exam - Constitutional Vitals: Period Temp Pulse Resp BP Sys/Mitchell Pulse Ox Last 24 Hr 97.1 F-98.4 F 53-79 16-20 96-126/39-89 93-97 Exam: General: Appears well with no apparent distress. Pleasant and cooperative. Appears comfortable. HEENT: PERRL, normocephalic, atraumatic. Mucous membranes moist. No jaundice noted. Conjunctiva moist and clear, sclerae anicteric Neck: No JVD/HJR, no thyromegaly or lymphadenopathy noted. No carotid bruit appreciated Cardiac: Regular rate and rhythm. No murmur rub or gallop. Lungs: Clear to auscultation without accessory muscle use to assist the respiratory pattern. Not requiring oxygen. Abdomen: Soft, bowel sounds normoactive. Nontender and nondistended. No abdominal bruit or thrill noted. No masses noted. Musculoskeletal: No fluid collection. Decreased range of motion is noted. Extremities: Right groin free of hematoma or bruit. No clubbing, cyanosis noted. No edema noted. Upper extremity pulses 2+. Lower extremity pulses 2+. Capillary refill less than 3 seconds. Skin: No unusual lesions or rashes. No skin breakdown appreciated. Neuro: Awake, alert and oriented 3. Moves all extremities well without hemiparesis or paralysis. No essential tremor is appreciated. Discharge Results Procedures and tests throughout hospitalization: Pending Orders 10/09/16 07:46 CL heart Routine 10/10/16 04:00 Basic Metabolic Panel IN AM Labs on day of discharge: Labs from last 24 hours 10/09/16 10/09/16 10/09/16 15:19 11:35 09:04 WBC RBC Hgb Hct MCV MCH MCHC RDW Plt Count MPV Neut % (Auto) Lymph % (Auto) Mower % (Auto) Eos % (Auto) Baso % (Auto) Neut # (Auto) Lymph # (Auto) Mower # (Auto) Eos # (Auto) Baso # (Auto) Immature Gran % Nucleated RBC % Immature Gran # Nucleated RBCs # Sodium 146 H Potassium 4.4 Chloride 112 H Carbon Dioxide 24 Anion Gap 14.4 BUN 9 Creatinine 0.80 GFR Calculation 109 BUN/Creatinine Ratio 11.00 Glucose 82 POC Glucose 98 119 H Calculated Osmolality 287.6 Calcium 8.3 L Magnesium 2.3 10/09/16 10/09/16 10/08/16 09:04 07:27 20:37 WBC 6.8 RBC 4.36 Hgb 13.7 L Hct 41.6 L MCV 95.4 MCH 31 MCHC 32.9 RDW 13.0 Plt Count 272 MPV 10.0 Neut % (Auto) 67.8 Lymph % (Auto) 24.3 Mower % (Auto) 5.6 Eos % (Auto) 1.2 Baso % (Auto) 0.7 Neut # (Auto) 4.6 Lymph # (Auto) 1.7 Mower # (Auto) 0.4 Eos # (Auto) 0.1 Baso # (Auto) 0.1 Immature Gran % 0.4 Nucleated RBC % 0.0 Immature Gran # 0.03 Nucleated RBCs # 0.00 Sodium Potassium Chloride Carbon Dioxide Anion Gap BUN Creatinine GFR Calculation BUN/Creatinine Ratio Glucose POC Glucose 90 87 Calculated Osmolality Calcium Magnesium 10/08/16 17:42 WBC RBC Hgb Hct MCV MCH MCHC RDW Plt Count MPV Neut % (Auto) Lymph % (Auto) Mower % (Auto) Eos % (Auto) Baso % (Auto) Neut # (Auto) Lymph # (Auto) Mower # (Auto) Eos # (Auto) Baso # (Auto) Immature Gran % Nucleated RBC % Immature Gran # Nucleated RBCs # Sodium Potassium Chloride Carbon Dioxide Anion Gap BUN Creatinine GFR Calculation BUN/Creatinine Ratio Glucose POC Glucose 96 Calculated Osmolality Calcium Magnesium - Imaging and Cardiology Cardiology Procedure: report reviewed by Procedure: Chest x-ray: report reviewed by DS: Provider Date of admission: 10/07/16 20:53 Primary care physician: . No PCP Attending physician on admission: Jen Thomas, Consults: Dr. Reynolds Discharging clinician: Samantha Arriaga NP Expected date of discharge: 10/09/16
[2016-10-10] MEDS ORDERED: ASPIRIN CHEW 81 MG TABLET PO SCH (09:00)
== END 2016-10-09 17:05 | disposition home or self-care (01) | DRG 287 ==
LOC: N.ED 17:44 → N.EDINP 20:53 → N.ADMINP 23:59 → N.TELES 10-08 15:38 → N.ADMINP 10-08 15:38 → N.EDINP 10-08 15:38 → N.TELES 10-08 16:26
PROVIDERS: ADMIT Internal Medicine Cardiovascular Disease; ATTEND Internal Medicine Cardiovascular Disease
PROC: CLCCHCL (ICD-10-PCS; 2016-10-09 08:15)